=== PATIENT | female | born 1950 | race Caucasian/White ===

== ENCOUNTER 2021-12-18 11:31 | Emergency (ER) | payer MEDICARE, SELFPAY ==
--- NOTE | ~2021-12-18 | XR_ITS ---
EXAMINATION: XR CHEST CLINICAL INFORMATION: Shortness of breath COMPARISON: None TECHNIQUE: Frontal view of the chest was obtained. FINDINGS: Lung volumes are symmetric. No focal consolidation is seen. No evidence of pneumothorax, pleural effusion, or pulmonary edema. The cardiomediastinal contour is unremarkable. No acute osseous findings are seen. XR/XR chest 1V IMPRESSION: No acute cardiopulmonary findings.
[2021-12-18 11:40] VITALS: BP 150/76; PULSE 81; RESP 18; TEMP 36.6; O2SAT 97; BMI 33.2
--- NOTE | 2021-12-18 11:44 | ECG_ITS ---
Test Reason : dizziness Blood Pressure : / mmHG Vent. Rate : 080 BPM Atrial Rate : 080 BPM P-R Int : 140 ms QRS Dur : 082 ms QT Int : 408 ms P-R-T Axes : 047 -23 061 degrees QTc Int : 470 ms Normal sinus rhythm Normal ECG When compared with ECG of 12-APR-2009 10:59, Nonspecific T wave abnormality no longer evident in Anterior leads Referred By: Generic ED Physician Electronically Signed By:SPENCER BARONE
[2021-12-18 12:00] LABS: MANUAL DIFF FLAG NO
[2021-12-18 12:06] LABS: Basophils Percent Auto 0.3 % (0-2); Eosinophils Absolute Auto 0.1 X10*3/uL (0.0-0.4); Eosinophils Percent Auto 0.4 % (0-4); Hemoglobin 11.9 g/dl (12.0-16.0); Imm Gran Abs Auto 0.08 X10*3/uL (0.00-0.03); Imm Gran Pct Auto 0.6 % (0.0-0.4); Lymphocytes Absolute Auto 1.3 X10*3/uL (1.2-4.9); Lymphocytes Percent Auto 9.5 % (20-40); Mean Corpuscular HGB Conc 32.2 g/dl (31.0-35.0); Mean Corpuscular Hemoglobin 28.4 pg (27.0-33.0); Mean Corpuscular Volume 88.3 fL (80.0-98.0); Monocytes Absolute Auto 1.1 X10*3/uL (0.1-1.2); Monocytes Percent Auto 7.5 % (2-11); Neutrophils Absolute Auto 11.5 x10*3/uL (2.0-8.3); Neutrophils Percent Auto 81.7 % (45-73); Platelet Count 312 X10*3/uL (160-400); Red Blood Count 4.19 X10*6/uL (4.20-5.50); Red Cell Distribution Width 15.1 % (11.0-16.0); White Blood Count 14.1 X10*3/uL (4.8-10.8)
[2021-12-18 12:18] LABS: Anion Gap 16 (12-20); Blood Urea Nitrogen 17 mg/dL (9-16); Carbon Dioxide 26 mmol/L (22-29); Chloride 101 mmol/L (96-108); Creatinine Clr Calc Pharmacy 49.1; Estimated Glomerular Filt Rate 55; Glucose Random 128 mg/dL (60-115); Potassium 4.4 mmol/L (3.3-5.1); Sodium 139 mmol/L (135-145)
--- NOTE | 2021-12-18 13:10 | ED_ITS ---
HPI - General Adult General Chief complaint: Dizziness Stated complaint: sent by doctor. not feeling well Time Seen by Provider: 12/18/21 13:10 Source: patient Mode of arrival: ambulatory Limitations: language barrier History of Present Illness HPI narrative: HIstory obtained by her daughter, patient with right arm and right back pain, started 3 days ago, today the pain is worse. Patient was sent in for a cardiac workup. No chest pain no shortness of breath. The pain was intermittent but now more constant. No problems with her heart in the past. Onset (ago): day(s) Location: back, right and upper extremity Radiation: back Severity: moderate Pain Consistency: constant Relieving factors: none Related Data Allergies Allergy/AdvReac Type Severity Reaction Status Date / Time Penicillins Allergy Intermediate Rash Verified 12/18/21 11:39 Review of Systems Constitutional: Constitutional: Reports no additional constitutional complaints Eyes: Eyes: Reports no additional eye complaints ENT: Denies dizziness Cardiovascular: Cardiovascular: Reports no additional cardiovascular complaints Respiratory: Respiratory: Reports as per HPI Gastrointestinal: Gastrointestinal: Reports no additional gastrointestinal complaints Genitourinary: Genitourinary: Reports no additional female genitourinary complaints Musculoskeletal: Musculoskeletal: Reports no additional musculoskeletal complaints Integumentary/Breasts: Skin/Breast: Denies rash Neurologic: Reports system reviewed and no additional complaints, except as documented, Denies dizziness and Denies Sensory deficit (Neuro) Psychiatric: Psychiatric: Denies anxiety [facility] Social History Social History Patient Tobacco Use Status: Never used Tobacco Use of substances other than those prescribed or required for medical reasons: No Advance Directives: No Advance Directives Information Provided: No Physical Exam ED Vital Signs: Vital Signs - 24 hr 12/18/21 11:40 12/18/21 14:13 12/18/21 14:35 Temperature 97.8 F 97.7 F Pulse Rate 81 75 69 Respiratory Rate 18 18 14 Blood Pressure 150/76 H 134/65 145/67 H Pulse Oximetry 97 99 Oxygen Delivery Method Room Air Room Air Room Air 12/18/21 15:12 Temperature Pulse Rate 77 Respiratory Rate 16 Blood Pressure 127/62 Pulse Oximetry 97 Oxygen Delivery Method Room Air BMI result Body Mass Index 32.5 Const General: healthy appearing Nutritional Appearance: average body habitus Orientation/consciousness: oriented to person and patient oriented x3 Limitations: no limitations [facility] Head: Yes normal to inspection Ears: external ears normal General nose exam: Normal external nose present Mouth: Normal oral and palatal mucosa present and oropharynx normal Throat: Yes posterior oropharynx normal Eyes General: appearance normal, both eyes and all related structures Neck Neck: Yes normal visual inspection Chest Chest palpation & inspection: normal inspection of the chest Resp Auscultation: clear to auscultation bilaterally Cardio Jugular venous distension: no JVD Rate: regular rate Rhythm: regular rhythm Heart sounds: S1 normal heart sound present and S2 normal heart sound present GI Inspection: Yes normal to inspection Palpation (GI): Soft to palpation, nontender and No hepatosplenomegaly present Auscultation: normal bowel sounds General: Yes no CVA tenderness Back/Spine/Pelvis Back: no CVA tenderness Skin General skin exam: no rashes or lesions noted Neuro General: oriented to person and patient oriented x3 Cranial nerves: Yes CN's II-XII intact bilaterally Motor exam (neuro): 5/5 motor strength present throughout Sensory Exam: No Sensory deficit (Neuro) Extrem General: Yes normal to inspection Psych Appearance: grossly normal Course Reevaluation(s) Reevaluation #1: Discussed with Dr. Ruff who wants patient to go to [facility], patient accepted by Dr. 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 Time: 15:25 Medical Decision Making Lab Data Result diagrams: 12/18/21 14:09 12/18/21 11:55 Labs: Lab Results 12/18/21 12/18/21 12/18/21 Range/Units 11:55 11:55 11:55 WBC 14.1 H (4.8-10.8) X10*3/uL RBC 4.19 L (4.20-5.50) X10*6/uL Hgb 11.9 L (12.0-16.0) g/dl Hct 37.0 (37.0-47.0) % MCV 88.3 (80.0-98.0) fL MCH 28.4 (27.0-33.0) pg MCHC 32.2 (31.0-35.0) g/dl RDW 15.1 (11.0-16.0) % Plt Count 312 (160-400) X10*3/uL MPV 10.0 (9.4-12.3) fL Immature Gran % (Auto) 0.6 H (0.0-0.4) % Neut % (Auto) 81.7 H (45-73) % Lymph % (Auto) 9.5 L (20-40) % Kleberg % (Auto) 7.5 (2-11) % Eos % (Auto) 0.4 (0-4) % Baso % (Auto) 0.3 (0-2) % Lymph # (Auto) 1.3 (1.2-4.9) X10*3/uL Kleberg # (Auto) 1.1 (0.1-1.2) X10*3/uL Eos # (Auto) 0.1 (0.0-0.4) X10*3/uL Baso # (Auto) 0.0 (0.0-0.2) X10*3/uL Abs Immat Gran (auto) 0.08 H (0.00-0.03) X10*3/uL Absolute Neuts (auto) 11.5 H (2.0-8.3) x10*3/uL Absolute Nucleated RBC 0.000 (0.0-0.012) X10*3/uL Nucleated RBC % (auto) 0.0 (0.0-0.2) /100WBC PT (10.0-13.1) SEC INR (0.9-1.1) APTT (26.0-36.4) SEC aPTT Heparin Protocol Sodium 139 (135-145) mmol/L Potassium 4.4 (3.3-5.1) mmol/L Chloride 101 (96-108) mmol/L Carbon Dioxide 26 (22-29) mmol/L Anion Gap 16 (12-20) BUN 17 H (9-16) mg/dL Creatinine 0.99 (0.5-1.4) mg/dL Estim Creat Clear Calc 49.1 Estimated GFR 55 Random Glucose 128 H (60-115) mg/dL Calcium 9.0 (8.4-10.2) mg/dL Troponin I High Sens 31468.6 H* (<3.5-17.0) ng/L 12/18/21 12/18/21 12/18/21 Range/Units 13:44 14:09 14:09 WBC 14.8 H (4.8-10.8) X10*3/uL RBC 4.32 (4.20-5.50) X10*6/uL Hgb 12.4 (12.0-16.0) g/dl Hct 38.2 (37.0-47.0) % MCV 88.4 (80.0-98.0) fL MCH 28.7 (27.0-33.0) pg MCHC 32.5 (31.0-35.0) g/dl RDW 15.0 (11.0-16.0) % Plt Count 320 (160-400) X10*3/uL MPV 10.3 (9.4-12.3) fL Immature Gran % (Auto) (0.0-0.4) % Neut % (Auto) (45-73) % Lymph % (Auto) (20-40) % Kleberg % (Auto) (2-11) % Eos % (Auto) (0-4) % Baso % (Auto) (0-2) % Lymph # (Auto) (1.2-4.9) X10*3/uL Kleberg # (Auto) (0.1-1.2) X10*3/uL Eos # (Auto) (0.0-0.4) X10*3/uL Baso # (Auto) (0.0-0.2) X10*3/uL Abs Immat Gran (auto) (0.00-0.03) X10*3/uL Absolute Neuts (auto) (2.0-8.3) x10*3/uL Absolute Nucleated RBC 0.000 (0.0-0.012) X10*3/uL Nucleated RBC % (auto) 0.0 (0.0-0.2) /100WBC PT 10.6 (10.0-13.1) SEC INR 0.9 (0.9-1.1) APTT 30.1 (26.0-36.4) SEC aPTT Heparin Protocol Cancelled Sodium (135-145) mmol/L Potassium (3.3-5.1) mmol/L Chloride (96-108) mmol/L Carbon Dioxide (22-29) mmol/L Anion Gap (12-20) BUN (9-16) mg/dL Creatinine (0.5-1.4) mg/dL Estim Creat Clear Calc Estimated GFR Random Glucose (60-115) mg/dL Calcium (8.4-10.2) mg/dL Troponin I High Sens 07478.4 H* (<3.5-17.0) ng/L Critical Care Time Critical Care Time Attestation: I spent 40 minutes of critical care, with interventions, assessments, speaking to patient, consultants, and family. Discharge Plan Discharge Clinical Impression: Cardiac ischemia, Elevated troponin, Myocarditis Patient Disposition: [facility]
[2021-12-18 13:27] VITALS: BMI 32.5
[2021-12-18 14:13] VITALS: BP 134/65; PULSE 75; RESP 18; O2SAT 99
[2021-12-18] MEDS: Aspirin 325 MG TABLET PO (14:15)
[2021-12-18] MEDS: Nitroglycerin 2 % Oint 1 GM Packet 1 INCH TRANSDERMA (14:16)
[2021-12-18 14:17] LABS: Hematocrit 38.2 % (37.0-47.0); Hemoglobin 12.4 g/dl (12.0-16.0); Mean Corpuscular HGB Conc 32.5 g/dl (31.0-35.0); Mean Corpuscular Hemoglobin 28.7 pg (27.0-33.0); Mean Corpuscular Volume 88.4 fL (80.0-98.0); Mean Platelet Volume 10.3 fL (9.4-12.3); Platelet Count 320 X10*3/uL (160-400); Red Blood Count 4.32 X10*6/uL (4.20-5.50); White Blood Count 14.8 X10*3/uL (4.8-10.8)
--- NOTE | 2021-12-18 14:20 | PC.NURSE ---
Pt alert/oriented. States dizziness and right neck/shoulder pain into right arm at this time. SKin pwd. Denies cp or SOB. NSR on tele rate 70s. SPeaking full sentences. Difficulty obtaining IV access at this time. Pending dispo, reaching out to [facility] for possible transfer.
[2021-12-18 14:23] LABS: INTERNATIONAL NORM RATIO 0.9 (0.9-1.1); Prothrombin Time 10.6 SEC (10.0-13.1)
[2021-12-18 14:25] LABS: Partial Thromboplastin Time 30.1 SEC (26.0-36.4)
[2021-12-18 14:35] VITALS: BP 145/67; PULSE 69; RESP 14; TEMP 36.5
--- NOTE | 2021-12-18 14:35 | PC.NURSE ---
Awaiting pharmacy to adjust Heparin bolus dose (max 5000units)
--- NOTE | 2021-12-18 14:36 | PC.NURSE ---
Pt accepted for [facility], awaiting bed assgn transfer
[2021-12-18] MEDS: Heparin Sodium,Porcine/1/2NS 25,000 UNIT/250 ML IV.SOLN 10.96 UNIT IVCONT (15:04)
[2021-12-18] MEDS: Heparin Sodium,Porcine 5,000 UNIT/ML VIAL 6300 UNIT IVPUSH (15:06)
--- NOTE | 2021-12-18 15:07 | PC.NURSE ---
Okay to give bolus dose as noted per Dr Anguiano. Heparin gtt started at 14units/kg/hr. Pt denies CP at this time. NSR on tele. PTTHD order placed for 2100 today.
[2021-12-18 15:12] VITALS: BP 127/62; PULSE 77; RESP 16; O2SAT 97
--- NOTE | 2021-12-18 15:58 | PC.NURSE ---
@ [phone] CALL RECEIVED FROM ROLANDO OF THE [facility] PT PLACEMENT WITH ROOM ASSIGNMENT MASS MUTUAL 7, ROOM 32 RN TO RN [phone]
[2021-12-18 16:33] LABS: COVID-19 Test Negative (Negative); IDNOW Serial# 16C4AD1C
--- NOTE | 2021-12-18 16:56 | PC.NURSE ---
Addendum entered by Estelita Kaminski 12/18/21 16:58: ERROR spoke to RN Jennifer Original Note: RN to RN to [facility], spoke to Aditi
== END 2021-12-18 17:00 | disposition short-term general hospital (02) ==
PROVIDERS: Emergency Provider Emergency Medicine; PCP Internal Medicine
DX: I25.9 Chronic ischemic heart disease, unspecified (principal); I51.4 Myocarditis, unspecified; R42 Dizziness and giddiness; R77.8 Other specified abnormalities of plasma proteins; Z20.822 Contact with and (suspected) exposure to COVID-19; Z79.899 Other long term (current) drug therapy
CPT/HCPCS: 36415; 71045; 80048; 84484; 85025; 85027; 85610; 85730; 87635; 93005; 96374; 99285